=== PATIENT | male | born 1995 | race African-American/Black ===

== ENCOUNTER 2023-05-11 23:15 | Emergency (ER) | payer SELFPAY | END 2023-05-12 00:25 | disposition home or self-care (01) | LOC: CSHERS 23:15 | DX: S86.011A Strain of right Achilles tendon, initial encounter (principal); F17.210 Nicotine dependence, cigarettes, uncomplicated; X50.1XXA Overexertion from prolonged static or awkward postures, initial encounter | CPT/HCPCS: 99283 ==